=== PATIENT | female | born 1970 | race Caucasian/White ===

== ENCOUNTER 2020-04-30 23:20 | Emergency (ER) | payer BC ==
[~2020-04-30] VITALS: Ht 160 cm; Wt 67.1 kg
[~2020-04-30 23:20] MED LIST: ADDERALL; ASPIRIN EC81 M1 PO; CYMBALTA; CYMBALTA20 MG; FLAGYL500 MG PO; LOVASTAT20 PO; TRAMADOL 50 MG50 MG PO
[2020-05-01] MEDS ORDERED: COMPAZINE10 M2 PO (02:16)
[2020-05-01 02:30] VITALS: BP 128/76
== END 2020-05-01 02:30 | disposition home or self-care (01) ==
LOC: M.ERS 23:20
DX: G43.909 Migraine, unspecified, not intractable, without status migrainosus (principal); Z90.710 Acquired absence of both cervix and uterus